=== PATIENT | male | born 1960 | race Caucasian/White ===

== ENCOUNTER 2017-07-30 07:15 | Day surgery (SDC) | payer OTHER ==
[2017-07-29 09:24] VITALS: BMI 24.9
[2017-07-30] MEDS ORDERED: MethylPREDNISolone Depo 40 mg/ml Inj ONE ×2 (07:24→07:25)
[2017-07-30] MEDS ORDERED: Bupivacaine HCl 0.25% PF (10 ml) Inj ONE (07:24)
[2017-07-30] MEDS ORDERED: Iohexol 240 (50 ml) ONE (07:25)
[2017-07-30] MEDS ORDERED: Lactated Ringer's 1,000 ML IV ONE ×2 (07:58)
[2017-07-30] MEDS ORDERED: Propofol 10 mg/ml Inj (20 ML) ONE (08:42)
[2017-07-30] MEDS ORDERED: Midazolam 2 MG/2 ML VIAL ONE (09:35)
[2017-07-30 11:53] VITALS: TEMP 97.1
[2017-07-30 11:54] VITALS: BP 108/56; PULSE 62; O2SAT 98
[2017-07-30 11:55] VITALS: RESP 16
--- NOTE | 2017-07-30 17:18 | RAD ---
PROCEDURE: Intraoperative Fluoroscopy. HISTORY: LUMBAR RADICULOPATHY FINDINGS: Fluoroscopic assistance was provided for facet injection. Please fluoroscopic time (continuous mode) utilized during the procedure: 32.9 seconds.
== END 2017-07-30 11:31 | disposition home or self-care (01) ==
LOC: C.SDS 07:15
PROVIDERS: ATTEND Anesthesiology Pain Medicine
DX: M47.816 Spondylosis without myelopathy or radiculopathy, lumbar region (principal); M54.16 Radiculopathy, lumbar region; M51.36 Other intervertebral disc degeneration, lumbar region
CPT/HCPCS: 62323; J1030; J2250; J2704; J7120; Q9966

== ENCOUNTER 2017-08-27 10:04 | Emergency (ER) | payer OTHER ==
[2017-08-27 10:04] VITALS: BMI 24.9
[2017-08-27 10:20] VITALS: TEMP 98.1
[2017-08-27] MEDS ORDERED: Sodium Chloride 0.9% 1,000 ML IV ONE (10:44)
--- NOTE | 2017-08-27 10:49 | C.PDOC ---
History Of Present Illness 57 y/o male presents to ED c/o abdominal pain, vomiting, and diarrhea since last night after drinking coconut water. Denies fever, chills, or other complaints. Time Seen by Provider: 08/27/17 10:25 Chief Complaint (Nursing): Abdominal Pain History Per: Patient History/Exam Limitations: no limitations Onset/Duration Of Symptoms: Days (1) Current Symptoms Are (Timing): Still Present Context: Food Location Of Pain/Discomfort: Diffuse Radiation Of Pain To:: None Quality Of Discomfort: "Pain" Associated Symptoms: Vomiting, Diarrhea. denies: Loss Of Appetite, Back Pain, Chest Pain, Constipation, Urinary Symptoms Exacerbating Factors: None Alleviating Factors: None Recent travel outside of the [place]: No Additional History Per: Patient Past Medical History Reviewed: Historical Data, Nursing Documentation, Vital Signs Vital Signs: Last Vital Signs Temp 98.1 F 08/27/17 12:46 Pulse 69 08/27/17 13:30 Resp 18 08/27/17 13:30 BP 116/64 08/27/17 13:30 Pulse Ox 98 08/27/17 13:30 - Medical History PMH: Anxiety, Back Problems, HTN, Hypercholesterolemia Denies: Chronic Kidney Disease Surgical History: Appendectomy, Endoscopy - [facility] Procedures CLOSURE SKIN & SUBCUTANEOUS NEC (03/06/13) ENDOSC POLYPECTOMY OF LG INTEST (12/22/14) ESOPHAGOGASTRODUODENOSCOPY [EGD] W/CLOSED BIOPSY (12/22/14) TETANUS TOXOID ADMINIST (03/06/13) Family History: States: Unknown Family Hx - Social History Hx Tobacco Use: No Hx Alcohol Use: No Hx Substance Use: No - Immunization History Hx Tetanus Toxoid Vaccination: No Hx Influenza Vaccination: Yes Hx Pneumococcal Vaccination: No Review Of Systems Except As Marked, All Systems Reviewed And Found Negative. Constitutional: Negative for: Fever, Chills Gastrointestinal: Positive for: Vomiting, Abdominal Pain, Diarrhea. Negative for: Constipation, Melena, Hematochezia, Hematemesis Genitourinary: Negative for: Dysuria, Frequency, Hematuria Musculoskeletal: Negative for: Back Pain Neurological: Negative for: Headache, Dizziness Physical Exam - Physical Exam Appears: Non-toxic, No Acute Distress Skin: Normal Color, Warm, Dry Head: Atraumatic, Normacephalic Eye(s): bilateral: Normal Inspection Oral Mucosa: Moist Neck: Supple Chest: Symmetrical Cardiovascular: Rhythm Regular, No Murmur Respiratory: Normal Breath Sounds, No Rales, No Rhonchi, No Wheezing Gastrointestinal/Abdominal: Soft, Tenderness (mild diffuse), No Guarding, No Rebound Back: No CVA Tenderness Extremity: Normal ROM Neurological/Psych: Oriented x3, Normal Speech ED Course And Treatment - Laboratory Results Result Diagrams: 08/27/17 10:56 08/27/17 10:56 Lab Interpretation: Normal O2 Sat by Pulse Oximetry: 97 Pulse Ox Interpretation: Normal - Other Rad No standard instances X-Ray: Viewed By Me Interpretation: FINDINGS: CHEST: Heart size appears top normal. Atherosclerotic calcifications of the aorta. Left basilar atelectasis. Mild biapical pleural thickening. No significant pleural effusion. No definite pneumothorax. 2 mm punctate density within the left upper lobe adjacent to the left 6th posterior rib, possibly calcified granuloma. Please note that chest x- ray has limited sensitivity for the detection of pulmonary masses. Degenerative changes of the spine. ABDOMEN AND PELVIS: Moderate to severe constipation. No definite free air. Nonobstructive bowel gas pattern. Spinal fusion hardware involving the lower lumbar spine. Cervical fusion hardware. IMPRESSION: Left basilar atelectasis. Mild biapical pleural thickening. 2 mm punctate density within the left upper lobe adjacent to the left 6th posterior rib, possibly calcified granuloma. Moderate to severe constipation. Progress Note: Blood work, UA, obstructive series x-ray ordered and reviewed. Patient was given Zofran, and IV fluids. On re-evaluation abdomen soft non- tender Reassessment Condition: Improved Medical Decision Making Medical Decision Making: Patient discharged i stable condition Abdomen soft non-tender Disposition Counseled Patient/Family Regarding: Studies Performed, Diagnosis, Need For Followup, Rx Given - Disposition Referrals: [facility] [Outside] [place] [facility] [Outside] Disposition: HOME/ ROUTINE Disposition Time: 12:40 Condition: STABLE Additional Instructions: Follow up with clinic or PMD for further evaluation Prescriptions: Ondansetron ODT [Zofran ODT] 1 odt PO BID PRN #6 odt PRN Reason: Nausea/Vomiting Polyethylene Glycol 3350 [Miralax] 17 gr PO DAILY #10 packet Instructions: Constipation (ED), Gastroenteritis (ED) Forms: Bottle (Latvian) - POA Present On Arrival: None - Clinical Impression Clinical Impression: Constipation, Diarrhea, Vomiting, Abdominal pain - 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 - Scribe Statement The provider has reviewed the documentation as recorded by the Beatrizibmichael Barrow All medical record entries made by the Beatrizibmichael were at my direction and personally dictated by me. I have reviewed the chart and agree that the record accurately reflects my personal performance of the history, physical exam, medical decision making, and the department course for this patient. I have also personally directed, reviewed, and agree with the discharge instructions and disposition.
[2017-08-27] MEDS ORDERED: Sodium Chloride 0.9% 1,000 ML ONE (11:01)
[2017-08-27 11:07] LABS: BASO % 0.7 % (0.0-2.0); EOS # 0.1 K/uL (0.0-0.7); HEMATOCRIT 42.8 % (35.0-51.0); LYMPH # 2.4 K/uL (1.0-4.3); LYMPH % 43.6 % (20.0-40.0); MEAN CELL VOLUME 93.8 fL (80.0-94.0); MEAN CORPUSCULAR HEMOGLOBIN 31.8 pg (27.0-31.0); MEAN CORPUSCULAR HGB CONC 33.9 g/dL (33.0-37.0); MEAN PLATELET VOLUME 8.8 fL (7.2-11.7); MONO # 0.4 K/uL (0.0-0.8); MONO % 7.1 % (0.0-10.0); NRBC % 0.1 % (0.0-2.0); RED CELL DISTRIBUTION WIDTH 13.6 % (11.5-14.5); WHITE BLOOD COUNT 5.6 K/uL (4.8-10.8)
[2017-08-27 11:09] LABS: RBC URINE 1 /hpf (0-3); URINE BILIRUBIN NEGATIVE (NEGATIVE); URINE BLOOD NEGATIVE (NEGATIVE); URINE COLOR Yellow (YELLOW); URINE GLUCOSE (UA) NORMAL (Normal); URINE KETONE TRACE mg/dL (NEGATIVE); URINE LEUKOCYTE ESTERASE NEG Leu/uL (Negative); URINE PROTEIN NEGATIVE (NEGATIVE); URINE UROBILINOGEN NORMAL mg/dL (0.2-1.0); WBC URINE < 1 /hpf (0-5)
[2017-08-27 11:37] LABS: ALKALINE PHOSPHATASE 78 U/L (38-126); ALT/SGPT 48 U/L (21-72); AST/SGOT 33 U/L (17-59); BILIRUBIN,TOTAL 0.7 mg/dL (0.2-1.3); BLOOD UREA NITROGEN 13 mg/dL (9-20); CALCIUM 8.4 mg/dl (8.6-10.4); CARBON DIOXIDE 26 mmol/L (22-30); CHLORIDE 101 mmol/L (98-107); GFR AFRICAN-AMERICAN > 60; GLUCOSE,RANDOM 80 mg/dL (75-110); POTASSIUM 3.8 mmol/L (3.6-5.2); SODIUM 140 mmol/L (132-148); TOTAL PROTEIN 8.1 g/dL (6.3-8.3)
--- NOTE | 2017-08-27 11:53 | RAD ---
PROCEDURE: Radiographs of the chest and abdomen (obstructive series) HISTORY: Abd Pain COMPARISON: Lumbar spine x-ray performed 05/28/14 TECHNIQUE: AP radiograph of the chest, with upright and supine radiographs of the abdomen. FINDINGS: CHEST: Heart size appears top normal. Atherosclerotic calcifications of the aorta. Left basilar atelectasis. Mild biapical pleural thickening. No significant pleural effusion. No definite pneumothorax. 2 mm punctate density within the left upper lobe adjacent to the left 6th posterior rib, possibly calcified granuloma. Please note that chest x-ray has limited sensitivity for the detection of pulmonary masses. Degenerative changes of the spine. ABDOMEN AND PELVIS: Moderate to severe constipation. No definite free air. Nonobstructive bowel gas pattern. Spinal fusion hardware involving the lower lumbar spine. Cervical fusion hardware. IMPRESSION: Left basilar atelectasis. Mild biapical pleural thickening. 2 mm punctate density within the left upper lobe adjacent to the left 6th posterior rib, possibly calcified granuloma. Moderate to severe constipation.
[2017-08-27 13:30] VITALS: BP 116/64; PULSE 69; RESP 18
[2017-08-27 16:55] VITALS: O2SAT 97
== END 2017-08-27 13:43 | disposition home or self-care (01) ==
LOC: C.ER 10:04
DX: K59.00 Constipation, unspecified (principal); R19.7 Diarrhea, unspecified; R11.10 Vomiting, unspecified; R10.84 Generalized abdominal pain
CPT/HCPCS: 74022; 80053; 81001; 83690; 85025; 96361; 96374; 99284; J2405; J7040

== ENCOUNTER 2017-09-24 07:01 | Day surgery (SDC) | payer OTHER ==
[2017-09-24] MEDS ORDERED: Lidocaine Hydrochloride 5 ML INJ ONE (07:57)
[2017-09-24] MEDS ORDERED: Bupivacaine HCl 0.5% PF (10 ml) Inj ONE (08:07)
[2017-09-24] MEDS: Iohexol 240 (50 ml) ONE ×2 (08:40→09:23)
[2017-09-24] MEDS: MethylPREDNISolone Depo 40 mg/ml Inj ONE ×2 (08:41→09:23)
[2017-09-24] MEDS ORDERED: Lactated Ringer's 1,000 ML IV ONE (08:43)
[2017-09-24] MEDS ORDERED: MethylPREDNISolone Depo 40 mg/ml Inj ONE (09:32)
[2017-09-24 09:41] VITALS: BP 103/58; PULSE 57; RESP 16; TEMP 97.2; O2SAT 99
--- NOTE | 2017-09-24 14:31 | OP ---
PREOPERATIVE DIAGNOSES: 1. Cervical radiculopathy. 2. Cervical disc displacement without myopathy. 3. Myalgias. POSTOPERATIVE DIAGNOSES: 1. Cervical radiculopathy. 2. Cervical disc displacement without myopathy. 3. Myalgias. PROCEDURE: 1. Cervical epidural steroid injection, C6-C7. 2. Epidurogram. 3. Trigger point injections. X-RAY: [id number], fluoroscopy of the spine. ANESTHESIA: MAC/local. SURGEON: Edmund Olvera MD COMPLICATIONS: None. BLOOD LOSS: 2 mL. BRIEF HISTORY AND INDICATIONS: The patient has cervical radiculopathy and upper extremity pain and tingling radiating down from the posterior neck down to the arm and posterior shoulder side to all fingers. This patient presents today for a cervical epidural steroid injection under fluoroscopic guidance at the C6-C7 interlaminar space. PROCEDURE IN DETAIL: The patient, after giving informed consent for the procedure, was brought back to the procedure room, sitting in a wheelchair. Routine monitors were applied. The patient was leant forward with his neck flexed and forehead placed on a towel on the OR table. Neck was flexed at approximately 50 degrees lateral. Lateral fluoroscopic view was obtained at the C6-C7 levels. The patient was prepped and draped in a sterile fashion. A 27-gauge needle was used to inject lidocaine 1% subcutaneously over the skin overlying the interlaminar space of C6-C7. Subsequently, a 22-gauge Tuohy needle was used to advance into the C6-C7 interlaminar area using loss of resistance technique to enter the epidural space. The needle position was confirmed in lateral views. Contrast 180 Omnipaque was injected 0.5 mL showing good epidurogram. Subsequently, 80 mg of Depo-Medrol with 1 mL of normal saline was injected with intermittent negative aspiration. No heme or CSF was aspirated throughout. No paresthesias were elicited throughout. The patient tolerated the procedure well. Vital signs remained stable. The patient reported slight reduction in pain post procedure. Epidurogram: The patient underwent cervical epidural steroid injection today. The epidural was observed at the level of C6-C7 under AP and lateral fluoroscopic guidance. 2 mL of Omnipaque 200 contrast was injected that evenly spread from level C4 to C7 level with posterior-anterior dye spread bilaterally at level of C6-C7 and C5-C6. There appeared to be a moderate degree spondylosis at the level of C5-C6 and moderate degree of spondylosis at the level of C6-C7 with disc protrusion at the level of C6-C7. The intervertebral disc height at the level of C5-C6 was slightly less than normal and intervertebral disc height at the level of C7-T1 was well maintained. The neural foramen appeared to be patent. Conclusion: Good epidural dye containment from C6-C7 with intervertebral disc protrusion at the level of C5-C6, C6-C7, maintaining less than normal intervertebral disc height at level C5-C6. Spondylosis noted at the level of C4 through T1. Copies of the images are on file. Trigger Point Injections/Greater and Lesser Occipital Nerve Blocks: Tender to palpation on cervical areas and pain shooting up posterior head. Patient signed informed consent. Cervical area was prepped and draped in sterile fashion. A 25-gauge needle was used to inject trigger point areas in trapezius muscles, paracervical muscles, and rhomboids bilaterally. The greater and lesser occipital nerves were also injected bilaterally by inserting needle 1 cm lateral and inferior to the posterior occipital protuberance. Total volume used was 10 mL of 0.25% Marcaine mixed with 40 mg Kenalog. Intermittent aspiration was done throughout with no heme or CSF aspirated throughout. Patient tolerated procedure well. DISPOSITION: Patient was taken to the recovery room in stable condition. Patient was given instructions to follow up in two weeks and was discharged in stable condition. No events or complications. Edmund Olvera MD
--- NOTE | 2017-09-25 15:27 | RAD ---
PROCEDURE: HISTORY: Fluoroscopy provided for cervical epidural injection cervical radiculopathy COMPARISON: None TECHNIQUE: Total fluoroscopic time utilized during the procedure: 11.1 seconds. Total dose 0.59734 mGy cm squared FINDINGS: Submitted images from the current procedure: Single lateral view cervical spine Please refer to the physician's notes performing the procedure. IMPRESSION: Less than 1 hour fluoroscopic time utilized during performance of the procedure
== END 2017-09-24 09:50 | disposition home or self-care (01) ==
LOC: C.SDS 07:01
PROVIDERS: ATTEND Anesthesiology Pain Medicine
DX: M54.12 Radiculopathy, cervical region (principal); M50.20 Other cervical disc displacement, unspecified cervical region
CPT/HCPCS: 62321; J1030; Q9966

== ENCOUNTER 2018-03-14 11:27 | Emergency (ER) | payer OTHER ==
[2018-03-14 11:27] VITALS: BMI 24.9
[2018-03-14 11:36] VITALS: RESP 20; O2SAT 96
--- NOTE | 2018-03-14 11:52 | C.PDOC ---
History Of Present Illness 58 year old male presents to the ER complaining of right sided pain that began around 3 days ago status post fall. He describes the pain as throbbing and tingling. Patient reports he took morphine with no relief. Patient has a history of surgeries and chronic pain. Patient denies any bowel or urinary incontinence, shortness of breath, fever, or chills. Right shoulder lateral tenderness, limited ROM abduction secondary to pain Back: No Muscle Spasm, Paraspinal Tenderness (Diffuse lumbosacral tenderness), No Straight Leg Raising, Other (Midline Surgical Scar to L-Spine ) Time Seen by Provider: 03/14/18 11:42 Chief Complaint (Nursing): Upper Extremity Problem/Injury History Per: Patient History/Exam Limitations: no limitations Onset/Duration Of Symptoms: Days Current Symptoms Are (Timing): Still Present Past Medical History Reviewed: Historical Data, Nursing Documentation, Vital Signs Vital Signs: Last Vital Signs Temp 98.7 F 03/14/18 11:30 Pulse 95 H 03/14/18 11:30 Resp 20 03/14/18 11:30 BP 149/86 03/14/18 11:30 Pulse Ox 96 03/14/18 13:31 - Medical History PMH: Anxiety, Back Problems, HTN, Hypercholesterolemia Surgical History: Appendectomy, Endoscopy - [facility] Procedures CLOSURE SKIN & SUBCUTANEOUS NEC (03/06/13) ENDOSC POLYPECTOMY OF LG INTEST (12/22/14) ESOPHAGOGASTRODUODENOSCOPY [EGD] W/CLOSED BIOPSY (12/22/14) TETANUS TOXOID ADMINIST (03/06/13) Family History: States: No Known Family Hx - Social History Hx Tobacco Use: No Hx Alcohol Use: No Hx Substance Use: No - Immunization History Hx Tetanus Toxoid Vaccination: No Hx Influenza Vaccination: Yes Hx Pneumococcal Vaccination: Yes Review Of Systems Except As Marked, All Systems Reviewed And Found Negative. Constitutional: Negative for: Fever, Chills Respiratory: Negative for: Shortness of Breath Musculoskeletal: Positive for: Shoulder Pain, Back Pain, Other (right sided generalized pain from fall ) Physical Exam - Physical Exam Appears: Non-toxic, No Acute Distress Skin: Normal Color, Warm, Dry Head: Atraumatic, Normacephalic Eye(s): bilateral: Normal Inspection, EOMI Oral Mucosa: Moist Neck: Supple Chest: Symmetrical, No Deformity Cardiovascular: Rhythm Regular, No JVD Respiratory: Normal Breath Sounds, No Rales, No Rhonchi, No Wheezing Gastrointestinal/Abdominal: Soft, No Tenderness, No Distention, No Guarding Back: No Muscle Spasm, Paraspinal Tenderness (Diffuse Lumbosacral tenderness), Other (Midline Surgical Scar to L-spine ) Extremity: No Normal ROM ( limited ROM abduction secondary to pain on right shoulder ), Tenderness (Right shoulder lateral tenderness), No Deformity, No Swelling Pulses: Right Radial: Normal Neurological/Psych: Oriented x3, Normal Speech ED Course And Treatment O2 Sat by Pulse Oximetry: 96 (RA) Medical Decision Making Medical Decision Making: Impression: exacerbation of chronic pain after fall few days prior Plan: * LS spine xray * Shoulder xray * Toradol, Valium, Lidoderm Progress: Patient refused lidoderm states allergy to polyester. Patient reevaluated and still has pain. Decadron IM given XRays reviewed by me showing no acute fractures dislocation or other acute abnormality Arm sling applied. Patient reevaluated and states he is feeling a little better. Patient is stable for discharge. Disposition Counseled Patient/Family Regarding: Diagnosis, Need For Followup, Rx Given - Disposition Referrals: Shaik Reina MD [Staff Provider] - Disposition: HOME/ ROUTINE Disposition Time: 13:29 Condition: STABLE Additional Instructions: You can apply heat to area Continue with your usual pain medications Take Flexeril every 8 hours as needed for muscular pain and spasm, caution may cause drowsiness Prescriptions: Cyclobenzaprine [Cyclobenzaprine HCl] 10 mg PO TID #21 tab Ibuprofen [Motrin] 600 mg PO Q8 #30 tab Instructions: Chronic Pain (DC) Forms: [employer] (Tanzanian) - POA Present On Arrival: None - Clinical Impression Clinical Impression: Chronic pain, Shoulder tendonitis - 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 - Scribe Statement The provider has reviewed the documentation as recorded by the Scribe (Jillian Barker) All medical record entries made by the Scribe were at my direction and personally dictated by me. I have reviewed the chart and agree that the record accurately reflects my personal performance of the history, physical exam, medical decision making, and the department course for this patient. I have also personally directed, reviewed, and agree with the discharge instructions and disposition.
[2018-03-14] MEDS ORDERED: Lidocaine 5% Patch TD STA (11:54)
[2018-03-14] MEDS ORDERED: Lidocaine 5% Patch TD ONE (12:01)
[2018-03-14] MEDS ORDERED: Dexamethasone 4 mg/1 ml IM STA (12:39)
[2018-03-14] MEDS ORDERED: Dexamethasone 4 mg/1 ml ONE (13:05)
[2018-03-14 13:49] VITALS: BP 129/80; PULSE 65; TEMP 99.2
--- NOTE | 2018-03-14 18:38 | RAD ---
PROCEDURE: Radiographs of the Right Shoulder HISTORY: pain s.p fall COMPARISON: No prior. FINDINGS: BONES: Normal. No fracture. JOINTS: Normal. Glenohumeral and acromioclavicular joints preserved. No osteoarthritis. SOFT TISSUES: Small calcification noted adjacent to the right humeral head likely represent calcified tendinitis. OTHER FINDINGS: None. IMPRESSION: No evidence of acute fracture or dislocation.
--- NOTE | 2018-03-14 18:55 | RAD ---
PROCEDURE: Radiographs of the Lumbar Spine. HISTORY: pain s.p fall COMPARISON: No prior. FINDINGS: BONES: Status post posterior fusion and fixation at L5-S1. No radiographic evidence of acute fracture. Diffuse osteopenia. DISC SPACES: Unremarkable. OTHER FINDINGS: None. IMPRESSION: No evidence of acute fracture or subluxation.
== END 2018-03-14 13:49 | disposition home or self-care (01) ==
LOC: C.ER 11:27
DX: G89.29 Other chronic pain (principal); M75.91 Shoulder lesion, unspecified, right shoulder
CPT/HCPCS: 72100; 73030; 96372; 99283; J1100; J1885

== ENCOUNTER 2018-06-24 07:48 | Day surgery (SDC) | payer OTHER ==
[2018-06-22 10:17] VITALS: BMI 25.7
[2018-06-24] MEDS ORDERED: methylPREDNISolone Depo 80 mg/ml Inj ONE (09:51)
[2018-06-24] MEDS ORDERED: Iohexol 240 (50 ml) ONE (09:51)
[2018-06-24] MEDS ORDERED: Midazolam 2 MG/2 ML VIAL ONE (10:20)
[2018-06-24] MEDS ORDERED: Propofol 10 mg/ml Inj (20 ML) ONE (10:25)
[2018-06-24 12:05] VITALS: O2SAT 98
[2018-06-24 12:12] VITALS: BP 110/70; PULSE 80; RESP 18; TEMP 98
--- NOTE | 2018-06-24 14:30 | RAD ---
Date of service: 06/24/2018 PROCEDURE: Intraoperative Fluoroscopy. HISTORY: CERVICAL RADICULOPATHY FINDINGS: Fluoroscopic assistance was provided for epidural spinal injection. Please refer to the operative report from NOAH Tran.
--- NOTE | 2018-06-25 07:50 | OP ---
PROCEDURE DATE: 06/24/2018 PREOPERATIVE DIAGNOSES: 1. Cervical radiculopathy. 2. Cervical disc displacement without myopathy. 3. Myalgias. POSTOPERATIVE DIAGNOSES: 1. Cervical radiculopathy. 2. Cervical disc displacement without myopathy. 3. Myalgias. PROCEDURES: 1. Cervical epidural steroid injection, C6-C7. 2. Epidurogram. 3. Trigger point injections. X-RAY: [id number], fluoroscopy of the spine. ANESTHESIA: MAC/local. SURGEON: Edmund Olvera MD COMPLICATIONS: None. BLOOD LOSS: 2 mL. BRIEF HISTORY AND INDICATIONS: The patient has cervical radiculopathy and upper extremity pain and tingling radiating down from the posterior neck down to the arm and posterior shoulder side to all fingers. This patient presents today for a cervical epidural steroid injection under fluoroscopic guidance at the C6-C7 interlaminar space. PROCEDURE IN DETAIL: The patient, after giving informed consent for the procedure, was brought back to the procedure room, sitting in a wheelchair. Routine monitors were applied. The patient was leant forward with his neck flexed and forehead placed on a towel on the OR table. Neck was flexed at approximately 50 degrees lateral. Lateral fluoroscopic view was obtained at the C6-C7 levels. The patient was prepped and draped in a sterile fashion. A 27-gauge needle was used to inject lidocaine 1% subcutaneously over the skin overlying the interlaminar space of C6-C7. Subsequently, a 22-gauge Tuohy needle was used to advance into the C6-C7 interlaminar area using loss of resistance technique to enter the epidural space. The needle position was confirmed in lateral views. Contrast 180 Omnipaque was injected 0.5 mL showing good epidurogram. Subsequently, 80 mg of Depo-Medrol with 1 mL of normal saline was injected with intermittent negative aspiration. No heme or CSF was aspirated throughout. No paresthesias were elicited throughout. The patient tolerated the procedure well. Vital signs remained stable. The patient reported slight reduction in pain post procedure. EPIDUROGRAM: The patient underwent cervical epidural steroid injection today. The epidural was observed at the level of C6-C7 under AP and lateral fluoroscopic guidance. 2 mL of Omnipaque 200 contrast was injected that evenly spread from level C4 to C7 level with posterior-anterior dye spread bilaterally at level of C6-C7 and C5-C6. There appeared to be a moderate degree spondylosis at the level of C5-C6 and moderate degree of spondylosis at the level of C6-C7 with disc protrusion at the level of C6-C7. The intervertebral disc height at the level of C5-C6 was slightly less than normal and intervertebral disc height at the level of C7-T1 was well maintained. The neural foramen appeared to be patent. CONCLUSION: Good epidural dye containment from C6-C7 with intervertebral disc protrusion at the level of C5-C6, C6-C7, maintaining less than normal intervertebral disc height at level C5-C6. Spondylosis noted at the level of C4 through T1. Copies of the images are on file. TRIGGER POINT INJECTIONS/GREATER AND LESSER OCCIPITAL NERVE BLOCKS: Tender to palpation on cervical areas and pain shooting up posterior head. Patient signed informed consent. Cervical area was prepped and draped in sterile fashion. A 25-gauge needle was used to inject trigger point areas in trapezius muscles, paracervical muscles, and rhomboids bilaterally. The greater and lesser occipital nerves were also injected bilaterally by inserting needle 1 cm lateral and inferior to the posterior occipital protuberance. Total volume used was 10 mL of 0.25% Marcaine mixed with 40 mg Kenalog. Intermittent aspiration was done throughout with no heme or CSF aspirated throughout. Patient tolerated procedure well. DISPOSITION: Patient was taken to the recovery room in stable condition. Patient was given instructions to follow up in two weeks and was discharged in stable condition. No events or complications. Edmund Olvera MD
== END 2018-06-24 12:16 | disposition home or self-care (01) ==
LOC: C.SDS 07:48
PROVIDERS: ATTEND Anesthesiology Pain Medicine
DX: M54.12 Radiculopathy, cervical region (principal); M50.20 Other cervical disc displacement, unspecified cervical region; M47.22 Other spondylosis with radiculopathy, cervical region
CPT/HCPCS: 20552; 62321; J1040; J2250; J2704; J3010; Q9966